=== PATIENT | male | born 1970 | race African-American/Black ===

== ENCOUNTER 2023-03-31 14:54 | Inpatient (IN) | payer MEDICARE, SELFPAY ==
[2023-03-31 18:00] VITALS: BP 138/73; PULSE 82; TEMP 36.7; O2SAT 98
[2023-03-31 19:34] VITALS: BMI 21.7
[2023-03-31] MEDS: QUEtiapine Fumarate 300 MG TABLET 600 MG PO (20:19)
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
[2023-04-01] MEDS: FLUoxetine HCl 20 MG CAPSULE PO (08:15)
[2023-04-01 08:37] VITALS: BP 126/66; PULSE 88; RESP 18; TEMP 36.6; O2SAT 98
[2023-04-01] MEDS: Nicotine 21 MG PATCH.TD24 TRANSDERMA (09:53)
[2023-04-01] MEDS: Nicotine Polacrilex 2 MG GUM 4 MG BUCCAL (09:54)
[2023-04-01 10:03] LABS: Alanine Aminotransferase 26 U/L (0-40); Albumin Level 3.6 g/dL (3.5-5.0); Alkaline Phosphatase 47 U/L (39-117); Anion Gap 12 (12-20); Aspartate Amino Transferase 55 U/L (5-37); Bilirubin Total 0.4 mg/dL (0.0-1.0); Blood Urea Nitrogen 13 mg/dL (9-16); Calcium 9.3 mg/dL (8.4-10.2); Carbon Dioxide 28 mmol/L (22-29); Chloride 104 mmol/L (96-108); Cholesterol 180 mg/dL (<200); Creatinine Clr Calc Pharmacy 96.4; Estimated Glomerular Filt Rate > 60; Glucose Fasting 92 mg/dL (60-99); HDL Cholesterol 68 mg/dL (>40); LDL Cholesterol Calculated 92 mg/dL (<100); Magnesium 2.2 mg/dL (1.6-2.6); Potassium 4.2 mmol/L (3.3-5.1); Sodium 140 mmol/L (135-145); Total Protein 5.9 g/dL (6.5-8.0); Triglycerides 101 mg/dL (<150)
[2023-04-01 10:20] LABS: Free T4 (Free Thyroxine) 0.84 ng/dL (0.71-1.85); Thyroid Stimulating Hormone 0.55 uIU/mL (0.32-4.0)
[2023-04-01 10:32] LABS: Folate 8.3 ng/mL (> or = 4.0); Vitamin B12 374 pg/mL (200-900)
[2023-04-01 10:54] LABS: Estimated Average Glucose 105 mg/dL; Hemoglobin A1c % 5.3 % (<6.0)
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
[2023-04-01 18:00] VITALS: BP 140/73; PULSE 87; TEMP 36.8; O2SAT 99
[2023-04-01] MEDS: Acetaminophen 325 MG TABLET 650 MG PO (18:05)
[2023-04-01] MEDS: QUEtiapine Fumarate 300 MG TABLET 600 MG PO (20:12)
[2023-04-01] MEDS: Ibuprofen 600 MG TABLET PO (20:14)
[2023-04-01] MEDS: traZODone HCL 50 MG TABLET PO (20:15)
[2023-04-02] MEDS: FLUoxetine HCl 20 MG CAPSULE PO (08:07)
[2023-04-02] MEDS: Nicotine 21 MG PATCH.TD24 TRANSDERMA (08:07)
[2023-04-02 08:17] VITALS: BP 125/70; PULSE 90; RESP 16; TEMP 36.4; O2SAT 99
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
--- NOTE | 2023-04-02 12:36 | PC.NURSE ---
pt wigned a 3day notice 04/02/23 up on 04/07/23. UR, SW, and notified via email
[2023-04-02] MEDS: Ibuprofen 600 MG TABLET PO (14:13)
[2023-04-02 18:20] VITALS: BP 159/71; PULSE 71; RESP 16; TEMP 36.6; O2SAT 98
[2023-04-02] MEDS: hydrOXYzine HCL 25 MG TABLET PO (18:25)
[2023-04-02] MEDS: traZODone HCL 50 MG TABLET PO (20:06)
[2023-04-02] MEDS: QUEtiapine Fumarate 300 MG TABLET 600 MG PO (20:06)
[2023-04-03 06:00] VITALS: BP 96/51; PULSE 76; RESP 16; TEMP 36.6; O2SAT 99
[2023-04-03] MEDS: Nicotine 21 MG PATCH.TD24 TRANSDERMA (08:25)
[2023-04-03] MEDS: FLUoxetine HCl 20 MG CAPSULE PO (08:26)
[2023-04-03] MEDS: Ibuprofen 600 MG TABLET PO (08:26)
[2023-04-03] MEDS: Milk of Magnesia 30 ML ORAL.SUSP PO (17:59)
[2023-04-03 18:00] VITALS: BP 141/70; PULSE 80; RESP 16; TEMP 36.3; O2SAT 99
[2023-04-03] MEDS: traZODone HCL 50 MG TABLET PO (19:58)
[2023-04-03] MEDS: QUEtiapine Fumarate 300 MG TABLET 600 MG PO (19:58)
[2023-04-03 20:45] VITALS: BP 147/75; PULSE 83; RESP 18; TEMP 36.6; O2SAT 98
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
[2023-04-04] MEDS: Nicotine 21 MG PATCH.TD24 TRANSDERMA (08:18)
[2023-04-04] MEDS: FLUoxetine HCl 20 MG CAPSULE PO (08:18)
[2023-04-04 08:46] VITALS: BP 129/65; PULSE 80; RESP 18; TEMP 36.7; O2SAT 98
[2023-04-04 18:00] VITALS: BP 133/83; PULSE 94; RESP 18; TEMP 37.1; O2SAT 96
[2023-04-04] MEDS: hydrOXYzine HCL 25 MG TABLET PO (19:11)
[2023-04-04] MEDS: traZODone HCL 50 MG TABLET PO (19:11)
[2023-04-04] MEDS: QUEtiapine Fumarate 300 MG TABLET 600 MG PO (19:11)
[2023-04-05 08:00] VITALS: BP 122/60; PULSE 79; RESP 16; TEMP 36.9; O2SAT 97
[2023-04-05] MEDS: Nicotine 21 MG PATCH.TD24 TRANSDERMA (09:02)
[2023-04-05] MEDS: Ibuprofen 600 MG TABLET PO (09:03)
[2023-04-05] MEDS: FLUoxetine HCl 20 MG CAPSULE PO (09:03)
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
[2023-04-05 18:00] VITALS: BP 131/61; PULSE 83; TEMP 36.9; O2SAT 98
[2023-04-05] MEDS: QUEtiapine Fumarate 300 MG TABLET 600 MG PO (20:10)
[2023-04-05] MEDS: hydrOXYzine HCL 25 MG TABLET PO (20:11)
[2023-04-05] MEDS: traZODone HCL 50 MG TABLET PO (20:11)
[2023-04-06 08:22] VITALS: BP 119/62; PULSE 78; RESP 16; TEMP 36.4; O2SAT 99
[2023-04-06] MEDS: FLUoxetine HCl 20 MG CAPSULE PO (08:24)
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
== END 2023-04-06 12:30 | disposition home or self-care (01) | DRG 882 ==
PROVIDERS: Clinical Nurse Specialist Psychiatric/Mental Health, Adult; Admitting Provider Psychiatry & Neurology Psychiatry; Visit Provider Psychiatry & Neurology Psychiatry
DX: F43.25 Adjustment disorder with mixed disturbance of emotions and conduct (principal); R45.851 Suicidal ideations; G40.909 Epilepsy, unspecified, not intractable, without status epilepticus; M79.7 Fibromyalgia; F17.210 Nicotine dependence, cigarettes, uncomplicated; Z71.6 Tobacco abuse counseling; Z87.820 Personal history of traumatic brain injury; Z87.898 Personal history of other specified conditions; Z79.899 Other long term (current) drug therapy
CPT/HCPCS: 36415; 80053; 80061; 82607; 82746; 83036; 83735; 84439; 84443

== ENCOUNTER → 2023-03-31 14:54 | Outpatient (BNV) | payer MEDICARE, SELFPAY | PROVIDERS: Admitting Provider Psychiatry & Neurology Psychiatry; Visit Provider Psychiatry & Neurology Psychiatry | DX: F43.25 Adjustment disorder with mixed disturbance of emotions and conduct (principal); S06.9XAD Unspecified intracranial injury with loss of consciousness status unknown, subsequent encounter; G40.909 Epilepsy, unspecified, not intractable, without status epilepticus | CPT/HCPCS: 90792; 99231; 99238 ==

== ENCOUNTER → 2023-03-31 14:54 | Outpatient (BNV) | payer MEDICARE, SELFPAY | PROVIDERS: Admitting Provider Psychiatry & Neurology Psychiatry; Visit Provider Psychiatry & Neurology Psychiatry | DX: F43.25 Adjustment disorder with mixed disturbance of emotions and conduct (principal); S06.9XAS Unspecified intracranial injury with loss of consciousness status unknown, sequela; G40.909 Epilepsy, unspecified, not intractable, without status epilepticus | CPT/HCPCS: 99231; 99232 ==

== ENCOUNTER → 2023-03-31 14:54 | Outpatient (BNV) | payer MEDICARE, SELFPAY | PROVIDERS: Admitting Provider Psychiatry & Neurology Psychiatry; Visit Provider Student in an Organized Health Care Education/Training Program | DX: Z02.2 Encounter for examination for admission to residential institution (principal) | CPT/HCPCS: 99429 ==